=== PATIENT | male | born 1960 | race Caucasian/White ===

== ENCOUNTER → 2024-07-12 17:04 | Outpatient (REF) | payer BC, SELFPAY | LOC: RAD 17:04 | PROVIDERS: ATTENDING PHYSICIAN Family Medicine | DX: M25.551 Pain in right hip (principal) | CPT/HCPCS: 73502 ==

== ENCOUNTER 2024-07-18 04:15 | Emergency (ER) | payer BC, SELFPAY ==
[2024-07-18 04:16] VITALS: BP 158/102
--- NOTE | 2024-07-18 04:56 | ED.GENMED ---
History of Present Illness
<DAVID Arredondo - Last Filed: 07/18/24 06:14>
General
Chief Complaint: Musculo-Skeletal Complaint
Source: patient
Time Seen by Provider: 07/18/24 04:41
History of Present Illness
History of Present Illness:
Pt is a 63 y/o male with PMHx of HLD presenting with right hip/leg throbbing. He states that on 07/09/24 he was walking and felt a pop in his right hip begin to feel a throbbing pain. He states that he felt like it 'popped back in after that.' He
continued to have the throbbing pain from his right lateral hip down to his ankle. He saw a doctor at [facility] on 07/12 and he states they 'popped it back in' and took an xray. He states they also started him on prednisone and
cyclobenzaprine which have provided him no relief. He had a follow up on 07/16 and he states they increased his dose of prednisone which has provided no relief. He states they also told him that he should get an MRI which he has scheduled for
tomorrow. He states that he has not been able to sleep due to the throbbing which is why he came to the ED. He states he has been ambulating without difficulty. He denies any loss of sensation or ROM.
Phy Exam
<DAVID Arredondo - Last Filed: 07/18/24 06:14>
Physical Exam
Physical Exam:
GENERAL: Alert , in no apparent distress
EYE: pupils equal and reactive
Throat: Airway intact, no exudates
NECK: Supple, no significant adenopathy.
CARDIAC: Regular rate and rhythm .
LUNGS: Clear breath sounds bilaterally, no acute respiratory distress, no wheezes/rales/rhonchi
ABDOMEN: Soft, nondistended, nontender, no cvat
NEUROLOGICAL: Alert and oriented, no focal neuro deficits
SKIN: Warm and dry, skin intact.
MUSCULOSKELETAL: No edema, well perfused. No leg length discrepancies. Full ROM of hips and ankles b/l. Femoral, dorsalis pedis, and posterior tibial pulses 2+ b/l. Sensation intact to LE b/l.
PSYCH: Normal and appropriate interaction.
Course
<Bill Byrd STPA - Last Filed: 07/18/24 06:14>
Orders/Labs/Results
Orders:
Orders
07/18/24 04:59
Hip, Right 2-3 Views [CR Hip - RT w/wo Pel 2-3 Vw*] Urgent
Comment:
Reason For Exam: Right hip pain
Include a pelvis x-ray?: Yes
07/18/24 05:39
Ketorolac [Toradol] 30 mg .ROUTE .STK-MED ONE
07/18/24 05:41
Ketorolac [Toradol] 30 mg IM NOW STA
Vital Signs
Initial and Last Documented VS:
Initial Vital Signs
Temp Pulse Resp BP Pulse Ox
98.9 F 70 24 158/102 95
07/18/24 04:16 07/18/24 04:16 07/18/24 04:16 07/18/24 04:16 07/18/24 04:16
Last Documented Vital Signs
Temp Pulse Resp BP Pulse Ox
98.9 F 63 16 148/98 97
07/18/24 04:16 07/18/24 06:00 07/18/24 06:00 07/18/24 06:02 07/18/24 06:02
<Jaison Albrecht DO - Last Filed: 07/18/24 06:21>
Orders/Labs/Results
Orders:
Orders
07/18/24 04:59
Hip, Right 2-3 Views [CR Hip - RT w/wo Pel 2-3 Vw*] Urgent
Comment:
Reason For Exam: Right hip pain
Include a pelvis x-ray?: Yes
07/18/24 05:39
Ketorolac [Toradol] 30 mg .ROUTE .STK-MED ONE
07/18/24 05:41
Ketorolac [Toradol] 30 mg IM NOW STA
Vital Signs
Initial and Last Documented VS:
Initial Vital Signs
Temp Pulse Resp BP Pulse Ox
98.9 F 70 24 158/102 95
07/18/24 04:16 07/18/24 04:16 07/18/24 04:16 07/18/24 04:16 07/18/24 04:16
Last Documented Vital Signs
Temp Pulse Resp BP Pulse Ox
98.9 F 63 16 148/98 97
07/18/24 04:16 07/18/24 06:00 07/18/24 06:00 07/18/24 06:02 07/18/24 06:02
<DAVID Arredondo - Last Filed: 07/18/24 06:14>
MDM/Problems Addressed
Differential Diagnosis Includes:
Differential diagnosis includes but is not limited to hip strain, hip sprain, hip dislocation
Patient's hip XRAY unchanged from 07/12. He has MRI scheduled for tomorrow. Patient discharged with Percocet and educated to follow up with his outpatient MRI.
<DAVID Arredondo - Last Filed: 07/18/24 06:14>
*Pulse Oximetry
Patient hypoxic: no
*EKG
Interpreted by ED Provider?: NA
*Draw Bench Operator Helper Interpretation
Rate: Draw Bench Operator Helper- N/A
*Critical Care Note
Total Time (30-74mins, 75-104mins- exclusive of procedures): Not Applicable
ED Attending Note
<DAVID Arredondo - Last Filed: 07/18/24 06:14>
-
Portions of this chart may have been created with voice recognition software.� Occasional wrong word or��sound alike� substitutions may have occurred due to the inherent limitations of voice recognition software.
<Jaison Albrecht, DO - Last Filed: 07/18/24 06:21>
ED Attending Note
Patient seen and examined by attending physician: Yes
I performed the substantive portion of visit, reviewed & personally made and approve the management plan that is documented in note by myself or JORGE LUIS.: Yes
ED Attending Note:
This a pleasant 63-year-old male who presents with right hip pain. He states that 2 weeks ago his right hip 'popped out '. He reports that the hip spontaneously went back pain shortly thereafter. He has been having pain ever since. Was seen at
his family doctor and put on muscle relaxants and steroids. He states that last evening the pain was persistent and he was unable to sleep so he came into the emergency department. Patient is scheduled for an outpatient MRI tomorrow. Patient
denies fever, chills, nausea or vomiting. Reports no chest pain calf tenderness or shortness of breath. Patient was seen in conjunction with the PA student. I have reviewed and agree with the history and treatment plan presented. On my
independent physical exam, patient is awake, alert, and oriented x3 minimal respiratory distress. Skin is warm and dry good distal pulses.
Plan is Toradol and x-ray to start.
Discharge Plan
Departure
Patient Disposition: Home (Routine Discharge)
Date of Disposition: 07/18/24
Time of Disposition: 06:10
Patient with high blood pressure during this ER visit?: Yes
Condition: Good
Discharge Problem:
Acute right hip pain
Instructions: Using Cold for Pain, Hip Pain ED, BLOOD PRESSURE
Prescriptions:
New
oxycodone-acetaminophen [Percocet] 5-325 mg tablet
1 tab PO Q6HPRN PRN (Reason: pain) Qty: 10 0RF
Referrals:
[place] CRNP [Family Provider] -
Activity Restrictions/Additional Instructions:
Your prescriptions were sent electronically to the pharmacy that you specified.
It was a pleasure meeting you and taking part in your care. We hope for your continued healing and wellness.
Please read discharge instructions in their entirety. However, they are for general education and may not describe your exact diagnosis at discharge. Information on your ER visit and medical conditions were discussed with you along with appropriate
follow up information...
If indicated, please take your medications as instructed and indicated on discharge paperwork.
Please schedule a follow up appointment as directed. Call to schedule an appointment
Please return to the emergency department with ANY change in, persisting, or worsening of symptoms. If any of your symptoms do not improve, or persist, or become more severe within 6-12 hours, please return to the emergency department for further
care.
Please return to the emergency department if you develop a headache, neck pain/stiffness, fever greater than 100.4F, chest pain, shortness of breath, persistent nausea, vomiting, slurred speech, difficulty walking, numbness/tingling, weakness, signs
of infection or any other symptoms that are worrisome to you.
If you have any questions or concerns please do not hesitate to call the Hospital at or E-mail me directly at [email or web address]
Interventions
Interventions:
*Risk Screen - Suicide Last Done: 07/18/24 04:16
*General Assessment Last Done: 07/18/24 05:35
*Neglect/Abuse Screening Last Done: 07/18/24 04:16
*ED COVID-19 Vaccine History Last Done: 07/18/24 05:35
ED-Musculoskeletal Assessment Last Done: 07/18/24 05:35
Discharge Date and Time
Print Language: ROMANIAN
[2024-07-18 05:35] VITALS: BMI 26.7
[2024-07-18] MEDS: TORADOL 30 MG IM (05:43)
[2024-07-18 06:02] VITALS: BP 148/98
[2024-07-18] MEDS: PERCOCET 5/325 1 TABLET PO (06:24)
== END 2024-07-18 06:31 | disposition home or self-care (01) ==
LOC: EMR 04:15
PROVIDERS: EMERGENCY PHYSICIAN Student in an Organized Health Care Education/Training Program; FAMILY PHYSICIAN Registered Nurse
DX: M25.551 Pain in right hip (principal); M79.604 Pain in right leg; R03.0 Elevated blood-pressure reading, without diagnosis of hypertension; E78.5 Hyperlipidemia, unspecified
CPT/HCPCS: 99284; 96372; 73502

== ENCOUNTER → 2024-07-19 08:03 | Outpatient (REF) | payer BC, SELFPAY | LOC: MRI 3T 08:03 | PROVIDERS: ATTENDING PHYSICIAN Family Medicine | DX: M79.604 Pain in right leg (principal); R29.898 Other symptoms and signs involving the musculoskeletal system | CPT/HCPCS: 72148 ==

== ENCOUNTER → 2024-12-24 14:34 | Outpatient (REF) | payer BC, SELFPAY | LOC: HWRAD 14:34 | PROVIDERS: ATTENDING PHYSICIAN Registered Nurse | DX: Z87.891 Personal history of nicotine dependence (principal) | CPT/HCPCS: 71271 ==